=== PATIENT | female | born 1995 | race African-American/Black ===

== ENCOUNTER 2022-02-12 13:53 | Emergency (ER) | payer MEDICAID ==
[~2022-02-12] VITALS: Ht 177.8 cm; Wt 90.0 kg
[2022-02-12 14:03] VITALS: BP 128/55
[2022-02-12] MEDS ORDERED: IBUP-2029 MT (15:40)
== END 2022-02-12 15:52 | disposition home or self-care (01) ==
LOC: ER 13:53
DX: M79.672 Pain in left foot (principal)
CPT/HCPCS: 73630; 99283